=== PATIENT | male | born 1990 | race Caucasian/White ===

== ENCOUNTER 2020-06-03 00:45 | Emergency (ER) | payer OTHER, SELFPAY ==
[2020-06-03 00:52] VITALS: BP 138/95; PULSE 112; RESP 18; TEMP 36.4; O2SAT 99; BMI 23.6
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
[2020-06-03 02:10] VITALS: BP 122/74; PULSE 68; RESP 16; O2SAT 99
[2020-06-03 02:54] VITALS: BP 124/74; PULSE 72; RESP 18; O2SAT 99
== END 2020-06-03 02:55 | disposition home or self-care (01) ==
PROVIDERS: Emergency Provider Physician Assistant
DX: S09.90XA Unspecified injury of head, initial encounter (principal); Y04.0XXA Assault by unarmed brawl or fight, initial encounter; Y92.239 Unspecified place in hospital as the place of occurrence of the external cause; Y99.0 Civilian activity done for income or pay; M54.2 Cervicalgia
CPT/HCPCS: 12345; 70450; 70486; 72125; 99281; 99283

== ENCOUNTER 2024-07-02 07:29 | Outpatient (CLI) | payer SELFPAY ==
[2024-07-02 08:13] LABS: HF Add Manual Diff No
[2024-07-02 08:16] LABS: Basophils % 0.8 %; Eosinophils # 0.1 10^3/uL (0.0-0.8); Hematocrit 43.4 % (37-53); Lymphocytes # 2.2 10^3/uL (0.8-4.8); Lymphocytes % 46.2 %; Mean Corpuscular HGB Conc 33.4 g/dL (30-55); Mean Corpuscular Hemoglobin 32.2 pg (27-33); Mean Corpuscular Volume 96.2 fl (82-101); Mean Platelet Volume 8.6 fL (7.4-10.4); Monocytes # 0.3 10^3/uL (0.2-0.9); Monocytes % 7.2 %; Neutrophils # 2.01 10^3/uL (1.8-7.7); Neutrophils % 42.6 %; Nucleated Red Blood Cells % 0 %; Platelet Count 264 10^3/cmm (157-399); Red Blood Count 4.51 10^6/uL (3.85-5.65); Red Cell Distribution Width 12.7 % (12.1-15.1); White Blood Count 4.72 10^3/uL (3.29-11.43)
[2024-07-02 08:28] LABS: Estmated Average Glucose 91; Hemoglobin A1C 4.8 % (4.0-6.0)
[2024-07-02 09:00] LABS: 25 Hydroxy Vitamin D 15 ng/mL (30-100); Alanine Aminotransferase 20 U/L (0-41); Albumin Level 4.4 g/dL (3.5-5.2); Alkaline Phosphatase 52 U/L (40-130); Anion Gap 12.3 (5-19); Aspartate Amino Transferase 17 U/L (0-40); Blood Urea Nitrogen 13 mg/dL (6-20); Calcium 9.3 mg/dL (8.5-10.5); Carbon Dioxide 27 mmol/L (22-29); Chloride 106 mmol/L (98-107); Chol HDL Ratio 4.62 mg/dL (1.0-5.00); Cholesterol 240 mg/dL (0-200); Globulin 2.7 g/dL (1.3-4.6); Glomerular Filtration Rate 95.5 mL/min (90-130); Glucose 90 mg/dL (65-115); HDL Cholesterol 52 mg/dL (60-100); LDL Cholesterol Calculated 177 mg/dL (50-129); Osmolality Calculated 292 mOsm/kg (285-295); Potassium 4.3 mmol/L (3.5-5.1); Prostate Specific Antigen Scr 0.38 ng/mL (0-4); Sodium 141 mmol/L (136-145); Thyroid Stimulating Hormone 1.81 uIU/mL (0.27-4.20); Total Bilirubin 0.4 mg/dL (0.15-1.2); Total Protein 7.1 g/dL (6.6-8.7); Triglycerides 56 mg/dL (0-150)
== END 2024-07-02 07:30 | disposition home or self-care (01) ==
LOC: LAB 07:30
PROVIDERS: Visit Provider Dermatology
DX: Z01.89 Encounter for other specified special examinations (principal)
CPT/HCPCS: 36415

== ENCOUNTER 2024-08-30 11:29 | Outpatient (CLI) | payer OTHER, SELFPAY ==
--- NOTE | 2024-08-30 15:30 | US_ITS ---
WS: [id number] TESTICULAR ULTRASOUND HISTORY: RIGHT sided scrotal mass COMPARISON: None available. TECHNIQUE: Real-time and color Doppler imaging utilized to perform a testicular ultrasound. Right testicle: 2.8 cm x 4.8 cm x 2.3 cm. Normal size testicle with increased vascularity. Increased Doppler throughout the testicle. Normal waveform. No significant hydrocele. Right epididymis: Mildly heterogeneous enlarged and hypervascular epididymis. Left testicle: 5.1 cm x 2.7 cm x 2.3 cm. Normal size and echogenicity. No mass or torsion. Normal color Doppler is present throughout. Systolic and diastolic velocities are both present. No significant hydrocele. Left epididymis: Normal epididymis with no increased vascularity. US/US scrotum [id number] IMPRESSION: 1. No testicular mass or torsion. 2. Mild acute RIGHT epididymal orchitis.
== END 2024-08-30 11:30 | disposition home or self-care (01) ==
PROVIDERS: PCP Family Medicine; Visit Provider Family Medicine
DX: N50.89 Other specified disorders of the male genital organs (principal); N45.2 Orchitis
CPT/HCPCS: 76870

== ENCOUNTER 2025-01-02 08:25 | Outpatient (CLI) | payer SELFPAY ==
[2025-01-02 10:28] LABS: HF Add Manual Diff No
[2025-01-02 10:33] LABS: Hematocrit 39.8 % (37-53); Hemoglobin 13.40 g/dL (11.27-16.99); Mean Corpuscular HGB Conc 33.7 g/dL (30-55); Mean Corpuscular Hemoglobin 32.6 pg (27-33); Mean Corpuscular Volume 96.8 fl (82-101); Nucleated Red Blood Cells % 0 %; Platelet Count 223 10^3/cmm (157-399); Red Blood Count 4.11 10^6/uL (3.85-5.65); White Blood Count 4.28 10^3/uL (3.29-11.43)
[2025-01-02 10:43] LABS: Estmated Average Glucose 100; Hemoglobin A1C 5.1 % (4.0-6.0)
[2025-01-02 10:57] LABS: Alanine Aminotransferase 30 U/L (0-41); Albumin Level 4.5 g/dL (3.5-5.2); Alkaline Phosphatase 47 U/L (40-130); Anion Gap 10.3 (5-19); Aspartate Amino Transferase 22 U/L (0-40); Blood Urea Nitrogen 14 mg/dL (6-20); Calcium 9.3 mg/dL (8.5-10.5); Carbon Dioxide 30 mmol/L (22-29); Chloride 106 mmol/L (98-107); Cholesterol 214 mg/dL (0-200); Globulin 3.1 g/dL (1.3-4.6); Glucose 86 mg/dL (65-115); HDL Cholesterol 60 mg/dL (60-100); Osmolality Calculated 294 mOsm/kg (285-295); Potassium 4.3 mmol/L (3.5-5.1); Sodium 142 mmol/L (136-145); Total Protein 7.6 g/dL (6.6-8.7); Triglycerides 59 mg/dL (0-150)
== END 2025-01-02 08:26 | disposition home or self-care (01) ==
LOC: LAB 08:25
PROVIDERS: PCP Family Medicine; Visit Provider Dermatology
DX: Z01.89 Encounter for other specified special examinations (principal)